=== PATIENT | female | born 1955 | race Two or more races ===

== ENCOUNTER 2025-04-28 14:23 | Outpatient (RCR) | payer MEDICAID, SELFPAY ==
--- NOTE | 2025-04-28 14:40 | PT.OIERPT ---
PT OP Initial Eval Patient Information Outpatient Physical Therapy Treatment Date: 04/28/25 Visit Reasons: back pain Medical Diagnosis: M47.816 Start of Care: 04/28/25 Date of Onset: 1 yr ago Smoking Status Smoking Status: Light (< 1 pack/day) Cessation Counseling Provided: [place] was advised that quitting smoking is the single most important factor to protect the health of themselves and their family. Discussed the benefits of quitting smoking with patient. Encouraged patient to quit smoking and provided Cessation assistance materials and resources. Tobacco Use: Cigarette Years smoked: 35 Are you interested in quitting?: Yes Would you like additional Smoking Cessation Counseling?: No Initial Assessment Subjective: Pt is 69 yr old khmer speaking female who reports LBP x1 yr that is almost constant. Increased pain with bending, lifting or twisting. This limits standing tolerance and HH chores tolerance. She denies pain radiating from the LB into the LE's. PMH: x2 Imaging: Xrays with provider Pt goal; less LBP Objective: ?Trunk ArOM: ? B SB 50% of normal with pain to the R ? Extension: 30% with pain around L4-5, L5-S1 ? Flexion: 10 from floor with LBP ? B rotation: 60% with pain ? R SLR ROM: 45 deg. L SLR: 40 deg with posterior knee neural tension, LBP ? TTP: moderate paraspinals L5-S1 ? Neuro: B SLR: negative Assessment: Pt presents with trunk flexion sensitivity and overlying myofascial pain ? and TTP around L4-S1 consistent with lumbar OA and spondylolisthesis. Pt not likely going to meet goals and has poor rehab potential since this is chronic and will not likely go away with therapy visits. Eval followed by HEP printout. Short Term and Copy Lathe Tender Goals Eval and D/C Treatment Plan Eval and D/C Certification Dates: 04/28/25 to 05/27/25 Procedure Charges OP PT Eval Mod Complex 30 minutes: Yes
== END 2025-05-03 23:59 | disposition home or self-care (01) ==
LOC: CPTX 14:23
PROVIDERS: PCP Registered Nurse Pediatrics; Referring Provider Registered Nurse Pediatrics; Visit Provider Registered Nurse Pediatrics
DX: M47.816 Spondylosis without myelopathy or radiculopathy, lumbar region (principal); Z71.6 Tobacco abuse counseling; F17.210 Nicotine dependence, cigarettes, uncomplicated
CPT/HCPCS: 97162

== ENCOUNTER → 2025-06-02 | Outpatient (CLI) | payer MEDICAID, SELFPAY ==
--- NOTE | 2025-06-02 08:45 | XR_ITS ---
Examination: Breast ultrasound, unilateral, left complete Date and time of exam: June 02, 2025 0948 hours INDICATIONS: Mammogram April 01, 2025 8mm focal asymmetry medial left breast Technique: Real-time price scale ultrasonographic imaging performed left breast including all 4 quadrants as well as nipple retroareolar and axillary region. Findings: No cystic or solid mass, dilated ducts IMPRESSION: BI-RADS Category 2: Benign findings
--- NOTE | 2025-06-02 09:15 | XR_ITS ---
Examination: Diagnostic digital mammography, unilateral, left Computer aided detection 3-D breast Tomosynthesis, unilateral Date and time of exam: June 02, 2025 1005 hours INDICATIONS: Outside mammogram April 01, 2025 8mm focal asymmetry medial left breast Technique: Nonmagnified MLO, CC views of the left breast have been obtained, reconstructed from 3-D Tomosynthesis images. R2 computer aided detection program utilized for evaluation of suspicious masses and/or abnormal calcifications. 3-D Tomosynthesis images obtained. Findings: The breast is heterogeneously dense, which may obscure small masses 8 mm focal asymmetry remains inner left breast on the spot compression CC view, probably upper left breast on the MLO view Impression: BI-RADS category 3: Probably benign findings Six-month left mammogram continued follow-up is needed and follow-up 6 month left breast sonogram strongly recommended
== END | disposition home or self-care (01) ==
LOC: CDIM 09:20
PROVIDERS: PCP Registered Nurse Pediatrics; Referring Provider Registered Nurse Pediatrics; Visit Provider Registered Nurse Pediatrics
DX: R92.322 Mammographic fibroglandular density, left breast (principal)
CPT/HCPCS: 76641; 77061; 77065; G0279